=== PATIENT | male | born 1970 | race Caucasian/White ===

== ENCOUNTER 2018-07-27 18:02 | Inpatient (IN) | payer OTHER ==
[2018-07-27 18:28] LABS: #Basophils 0.1 thou/uL (0.0-0.2); #Eosinphils 0.1 thou/uL (0.0-0.7); #Lymphocytes 3.4 thou/uL (1.20-3.40); #Monocytes 1.2 thou/uL (0.11-0.59); #Neutrophils 9.6 thou/uL (1.40-6.50); %Basophils 0.8 % (0.0-1.0); %Eosinophils 0.9 % (0.0-10.0); %Lymphocytes 23.6 % (21.0-51.0); %Monocytes 8.2 % (0.0-10.0); %Neutrophils 66.5 % (42.0-75.0); Hemoglobin 16.3 g/dL (14.0-18.0); Mean Corpuscular HGB CONC 33.3 g/dL (32.0-36.0); Mean Corpuscular Hemoglobin 28.5 pg (27.0-31.0); Mean Corpuscular Volume 85.6 fL (78.0-98.0); Mean Platelet Volume 8.2 fL (7.4-10.4); Platelet Count 462 thou/uL (130-400); Red Blood Cell (RBC) Count 5.74 mill/uL (4.70-6.10); White Blood Cell (WBC) Count 14.5 thou/uL (4.8-10.8)
[2018-07-27] MEDS ORDERED: Lidocaine 2% Viscous Solution 10 ML, Aluminum & Magnesium Hydroxide 30 ML SSW SCH (18:45)
[2018-07-27 18:50] LABS: ALT (SGPT) 86 U/L (8-55); AST (SGOT) 62 U/L (5-34); Albumin 4.6 g/dL (3.5-5.0); Alkaline Phosphatase 63 U/L (40-150); Anion Gap 13 mmol/L (10-20); BUN (Urea Nitrogen) 15 mg/dL (8.9-20.6); Bilirubin, Total 0.8 mg/dL (0.2-1.2); Calc. Creatinine Clearance 0 mL/min (70-130); Calcium 9.9 mg/dL (7.8-10.44); Carbon Dioxide 27 mmol/L (22-29); Chloride 104 mmol/L (98-107); Estimated GFR-MDRD 61; Globulin 2.4 g/dL (2.4-3.5); Glucose 110 mg/dL (70-105); Lipase 51 U/L (8-78); Potassium 4.1 mmol/L (3.5-5.1); Sodium 140 mmol/L (136-145)
[2018-07-27 19:17] LABS: CKMB 44.5 ng/mL (0-6.6)
[2018-07-27] MEDS ORDERED: Enoxaparin Sodium 30 MG/0.3 ML SYRINGE ONE (19:48)
[2018-07-27] MEDS ORDERED: Enoxaparin Sodium 100 MG/ML SYRINGE ONE (19:48)
[2018-07-27] MEDS ORDERED: Nitroglycerin 2% Ointment 1 INCH/1 GM Packet ONE (20:02)
[2018-07-27] MEDS ORDERED: Acetaminophen 500 MG TAB ONE (20:07)
[2018-07-27] MEDS ORDERED: Dextrose 50% Abboject 50 ML SYRINGE SLOW IVP PRN (20:48)
[2018-07-27] MEDS ORDERED: Sodium Chloride 0.9% 1,000 ML IV SCH (20:48)
[2018-07-27] MEDS ORDERED: Ondansetron PF 4 MG/2 ML Vial IVP PRN (20:48)
[2018-07-27] MEDS ORDERED: Acetaminophen 325 MG TAB PO PRN (20:48)
[2018-07-27] MEDS ORDERED: Acetaminophen 650 MG Suppository PR PRN (20:48)
[2018-07-27] MEDS ORDERED: Dextrose 5% in Water 1,000 ML IV PRN (20:48)
[2018-07-27] MEDS ORDERED: HumaLOG 300 UNITS/3 ML VIAL SC PRN ×2 (20:48)
[2018-07-27] MEDS ORDERED: Senokot S 8.6-50 MG TAB PO PRN (20:48)
[2018-07-27] MEDS ORDERED: Guaifenesin DM 100-10/5 ML UDCUP PO PRN (20:48)
[2018-07-27] MEDS ORDERED: Ondansetron ODT 4 MG TAB PO PRN (20:48)
--- NOTE | 2018-07-27 21:01 | RAD ---
PORTABLE CHEST: Date: 07-27-18 Provided Clinical History: Chest pain FINDINGS: Evaluation is limited by patient body habitus. The cardiac silhouette appears enlarged, which may be due to portable technique. Prominence of the pulmonary vasculature. No focal consolidation, pleural f luid, or pneumothorax apparent. IMPRESSION: Cardiomegaly and prominence of the pulmonary vasculature. Correlate with concerns for congestive fail ure. POS: NADIR
[2018-07-27 21:16] VITALS: BMI 36.7
[2018-07-27] MEDS: Nitroglycerin 2% Ointment 1 INCH/1 GM Packet TOP SCH (21:29)
[2018-07-27] MEDS: Metoprolol Tartrate 25 MG TAB PO SCH (21:29)
[2018-07-27] MEDS: Atorvastatin Calcium 40 MG TAB PO SCH (21:29)
[2018-07-27] MEDS: Famotidine/PF 20 mg/2ml Vial SLOW IVP SCH (21:29)
[2018-07-27 21:58] LABS: Troponin I 3.548 ng/mL (< 0.028)
--- NOTE | 2018-07-27 22:17 | HP ---
PRIMARY CARE PHYSICIAN: Out of [facility], [facility]. CHIEF COMPLAINT: Chest pain. HISTORY OF PRESENT ILLNESS: This is a 48-year-old white male with a history of diet-controlled diabetes mellitus type 2, hypertension, and hyperlipidemia. 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 He woke up at 4 a.m. this morning with substernal burning chest pain. He thought the pain might improve over the course of the day, but it actually got worse. He made last of his 3 stops for the day and noticed that the pain was worsening. He was also noted to be very sweaty. However, the patient reports that he gets sweaty all the time and it did not seem an abnormal amount to him. He had no other symptoms. The patient was recommended to go to the emergency room. EMS brought him in and gave him aspirin and nitroglycerin en route with no change in his pain. In the emergency room, the patient had a GI cocktail with complete resolution of the burning pain. He did have lab done noted that showed an elevated troponin of 1.45 and a CK-MB of 45. EKG just showed some nonspecific ST changes and some evidence of right heart strain, but no significant ST elevations. The patient is currently asymptomatic. PAST MEDICAL HISTORY: 1. Diabetes mellitus type 2, diet controlled and on metformin. 2. Hypertension. 3. Hyperlipidemia. 4. Recurrent cellulitis of the right lower extremity, takes Omnicef as needed. PAST SURGICAL HISTORY: None. SOCIAL HISTORY: The patient smokes about 3 packs per week of cigarettes. No alcohol or illicit drug use. FAMILY HISTORY: Brother had a heart attack in his early 50s and his grandfather early of a heart attack as well. ALLERGIES: BACTRIM. CURRENT MEDICATIONS: 1. Lisinopril 20 mg daily. 2. Simvastatin 10 mg at night. 3. Metformin 500 mg daily. 4. Amlodipine 2.5 mg daily. The patient is uncertain of these dosages. REVIEW OF SYSTEMS: CONSTITUTIONAL: No fevers, no chills. EYES: No double vision or blurred vision. ENT: No congestion, drainage, or sore throat. CARDIOVASCULAR: See HPI. No palpitations or racing heart. PULMONARY: No coughing, wheezing, or shortness of breath. GASTROINTESTINAL: No abdominal pain. No nausea or vomiting. No diarrhea or constipation. GENITOURINARY: No dysuria or hematuria. MUSCULOSKELETAL: No muscle aches or joint pains. SKIN: No rashes or other lesions he has noted. NEUROLOGIC: No numbness, tingling, or focal weakness. PHYSICAL EXAMINATION: VITAL SIGNS: Blood pressure 144/103. His blood pressures previous to this check though have been controlled. Pulse 98, respirations 18, temperature 98.6, O2 saturation 97% on room air. GENERAL: This is a well-developed, obese, white male, in no acute distress. HEENT: Pupils are equal, round, and reactive to light. Oropharynx is clear without lesions, erythema, or exudate. NECK: Supple. No lymphadenopathy. No thyroid nodules or enlargement. No JVD. HEART: Regular rate and rhythm. No murmurs, rubs, or gallops. LUNGS: Clear to auscultation bilaterally. No wheezes, crackles, or rhonchi. ABDOMEN: Soft, nontender to palpation. Normoactive bowel sounds. No hepatosplenomegaly or other masses. EXTREMITIES: No clubbing, cyanosis, or edema. SKIN: No rashes or other lesions noted. NEUROLOGIC: Intact strength and sensation in all extremities. No facial droop. PSYCHIATRIC: Alert and oriented x3. Normal mood and affect. LABORATORY DATA: CBC with a white blood cell count of 14.5 and a platelet count of 462. The rest is normal. Complete metabolic panel is notable only for glucose of 110. An AST of 62, an ALT of 86. The rest was normal. His CK-MB was 44.5 and troponin was 1.45. IMAGING: Chest x-ray, I did review the chest x-ray done in the emergency room. No acute infiltrates noted. Film appears to be somewhat rotated, so unable to appropriately appreciate the heart size or mediastinal silhouette. EKG, I did review the EKG done in the emergency room. It does show normal sinus rhythm at 77 beats per minute and some nonspecific ST abnormalities, but no significant ST-segment elevation. Does have a normal axis, but there is an RSR pattern suggesting right ventricular conduction delay. ASSESSMENT: 1. Non ST-elevation myocardial infarction. I have given the patient full-dose Lovenox, also placing an inch of nitroglycerin paste on chest wall and we will give a dose of metoprolol. I had talked with Dr. Colin, cardiology on-call and he asked me to make the patient n.p.o. for the morning and the patient will need a catheterization at that time. The patient is currently asymptomatic without any active chest pain, so I believe it will be safe to watch him on the telemetry floor should he have worsening or uncontrolled chest pain, then moving him to the unit with a nitroglycerin drip will be the next course of action. 2. Hypertension. We will resume home blood pressure medications if current interventions did not keep the blood pressure under good control. 3. Hyperlipidemia. We will start the patient on atorvastatin 40 mg at night and check a lipid profile in the morning. 4. Tobacco abuse. We will give cessation counseling. 5. Gastrointestinal prophylaxis. We will put the patient on Pepcid twice a day. 6. Deep venous thrombosis prophylaxis. The patient is already on Lovenox. We will use SCDs while in bed. 7. Diabetes mellitus type 2, diet controlled. We will check fingerstick blood sugars before meals and at bedtime, and give a low insulin sliding scale as needed. We will hold metformin for now due to the upcoming catheterization. 8. Code status: I did discuss this with the patient, he is a full code. Should he be incapacitated, he stated that his sons would be his medical decision makers. Their names are Jc Herrmann and Hair Herrmann. Job ID: [id number]
[2018-07-28] MEDS: Nitroglycerin 2% Ointment 1 INCH/1 GM Packet TOP SCH ×3 (05:59→22:27)
[2018-07-28 07:40] LABS: #Basophils 0.1 thou/uL (0.0-0.2); #Eosinphils 0.1 thou/uL (0.0-0.7); #Monocytes 0.9 thou/uL (0.11-0.59); #Neutrophils 6.5 thou/uL (1.40-6.50); %Basophils 1.1 % (0.0-1.0); %Lymphocytes 28.2 % (21.0-51.0); %Monocytes 8.1 % (0.0-10.0); %Neutrophils 61.6 % (42.0-75.0); Hemoglobin 15.6 g/dL (14.0-18.0); Mean Corpuscular HGB CONC 34.7 g/dL (32.0-36.0); Mean Corpuscular Hemoglobin 29.8 pg (27.0-31.0); Mean Corpuscular Volume 85.8 fL (78.0-98.0); Mean Platelet Volume 8.2 fL (7.4-10.4); Platelet Count 296 thou/uL (130-400); Red Blood Cell (RBC) Count 5.23 mill/uL (4.70-6.10); White Blood Cell (WBC) Count 10.5 thou/uL (4.8-10.8)
[2018-07-28 07:46] LABS: Anion Gap 14 mmol/L (10-20); BUN (Urea Nitrogen) 13 mg/dL (8.9-20.6); Calc. Creatinine Clearance 147 mL/min (70-130); Calcium 9.1 mg/dL (7.8-10.44); Carbon Dioxide 23 mmol/L (22-29); Cardiac Risk 4.9 (Less than 4.5); Chloride 106 mmol/L (98-107); Cholesterol 132 mg/dl (< 200 Desired); Estimated GFR-MDRD 71; Glucose 126 mg/dL (70-105); HDL Cholesterol 27 mg/dL (>60 Neg Risk); LDL Cholesterol, Calculated 68 mg/dL; Potassium 3.6 mmol/L (3.5-5.1); Sodium 139 mmol/L (136-145); Triglycerides 187 mg/dL (Less than 150)
[2018-07-28] MEDS ORDERED: Diazepam 5 MG TAB PO SCH (08:15)
[2018-07-28] MEDS ORDERED: Communication Order-Pharmacy FS SCH (08:15)
[2018-07-28] MEDS ORDERED: Iopamidol 370 76% 100 ML VIAL ONE (08:27)
[2018-07-28] MEDS ORDERED: Iopamidol 370 76% 50 ML VIAL FS ONE (08:27)
[2018-07-28] MEDS ORDERED: Enoxaparin Sodium 120 MG/0.8 ML SYRINGE SC SCH (09:00)
[2018-07-28] MEDS: Aspirin 325 mg Enteric Coated Tablet PO SCH (09:00)
[2018-07-28] MEDS: Metoprolol Tartrate 25 MG TAB PO SCH ×2 (09:10→19:36)
[2018-07-28] MEDS: Famotidine/PF 20 mg/2ml Vial SLOW IVP SCH ×2 (09:10→19:21)
[2018-07-28] MEDS ORDERED: Midazolam HCl 2 mg/2 ml Vial ONE (09:25)
[2018-07-28] MEDS ORDERED: Fentanyl 100 MCG/2 ML VIAL ONE ×2 (09:25→14:55)
--- NOTE | 2018-07-28 09:39 | PDOC.PN ---
- Subjective Encounter Start Date: 07/28/18 Encounter Start Time: 20:20 Subjective: Patient without pain. No N/V. Had cath today with stents to RCA. - Objective Resuscitation Status - Order Detail: 07/27/18 19:56 Resuscitation Status Routine Resuscitation Status: FULL: Full Resuscitation Discussed with: Saul HARRELL Reviewed: Yes Vital Signs & Weight: Vital Signs (12 hours) Temp Pulse Resp BP Pulse Ox 07/28/18 03:10 98.4 F 72 18 109/65 92 L Weight Weight 286 lb 1.6 oz I&O: 07/27/18 07/28/18 07/29/18 06:59 06:59 06:59 Intake Total 615 Output Total 600 Balance 15 Result Diagrams: 07/28/18 07:15 07/28/18 07:15 Additional Labs: Accuchecks 07/28/18 05:30 POC Glucose 121 H Phys Exam - Physical Examination Constitutional: NAD HEENT: moist MMs Respiratory: no wheezing, no rales, no rhonchi, clear to auscultation bilateral Cardiovascular: RRR, no significant murmur Gastrointestinal: soft, non-tender, positive bowel sounds Neurological: non-focal Psychiatric: normal affect, A&O x 3 Dx/Plan (1) NSTEMI (non-ST elevated myocardial infarction) Code(s): I21.4 - NON-ST ELEVATION (NSTEMI) MYOCARDIAL INFARCTION Status: Acute Comment: cath with stent to RCA, some ST-elevation on EKG after cath but no symptoms (2) HTN (hypertension) Code(s): I10 - ESSENTIAL (PRIMARY) HYPERTENSION Status: Chronic Qualifiers: Hypertension type: essential hypertension Qualified Code(s): I10 - Essential (primary) hypertension (3) HLD (hyperlipidemia) Code(s): E78.5 - HYPERLIPIDEMIA, UNSPECIFIED Status: Chronic (4) DM type 2 (diabetes mellitus, type 2) Status: Chronic Qualifiers: Diabetes mellitus fci insulin use: without fci use Comment: diet controlled, holding Metformin for cath - Plan cont current plan of care, DVT proph w/lovenox keep another couple days in the hospital per Dr. Huston * . - Discharge Day Encounter end time: 20:30
[2018-07-28] MEDS ORDERED: Nitroglycerin 100MG/250ML BOT 250 ML ONE (09:51)
[2018-07-28] MEDS ORDERED: Heparin 10,000 UNITS/1 ML VIAL ONE ×4 (10:00→11:37)
[2018-07-28] MEDS ORDERED: Atropine Sulfate 1 mg/10 ml Syringe ONE (11:01)
[2018-07-28] MEDS ORDERED: TICAGRELOR 90 MG TABLET ONE (11:18)
[2018-07-28] MEDS ORDERED: traMADol HCl 50 MG TAB PO PRN (12:11)
[2018-07-28] MEDS ORDERED: Heparin 5,000 UNITS/ML VIAL ONE (13:04)
[2018-07-28] MEDS ORDERED: Heparin 10,000 UNITS/ 10 ML VIAL ONE ×3 (13:07→14:42)
[2018-07-28] MEDS ORDERED: Heparin 1,000 UNITS/ML VIAL SLOW IVP SCH (14:00)
--- NOTE | 2018-07-28 14:18 | CON ---
DATE OF CONSULTATION: 07/28/2018 REASON FOR CONSULTATION: Non-ST elevation myocardial infarction. 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 It went on much of the day off and on, but intensified. He was not sure if it was acid reflux, which he has had before or possibly his heart. Therefore, ultimately he decided to seek attention. He was brought in by ambulance. He was given nitroglycerin, it did not help. The patient had a burning sensation in his chest. He said the nitroglycerin did help. He later received some medicine for acid reflux and that did help his pain; however, the cardiac enzymes were elevated. PAST MEDICAL HISTORY: He does have a history of esophageal reflux many years ago. He was on a proton pump inhibitors over 10 years ago. The patient otherwise has been in fairly good condition. The patient does have a history of hypertension, hypercholesterolemia, and diabetes. He said the diabetes was diagnosed about a year ago. He is also extremely overweight and continues to smoke. FAMILY HISTORY: His brother had coronary artery disease and myocardial infarction at a relatively young age. Father with hypertension. SOCIAL HISTORY: He continues to smoke. He understands now it is essential that he quit. 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 He said he did have some in retrospect some other pain he was considering getting a stress test done at home. REVIEW OF SYSTEMS: CONSTITUTIONAL: No significant weight gain or loss. VISION: No changes. HEARING: No changes. PULMONARY: No cough or wheezing. GASTROINTESTINAL: No nausea, vomiting, or diarrhea. SKIN: No rashes. NEUROLOGIC: No unilateral weakness or numbness. PSYCHIATRIC: No unusual depression or anxiety. HEMATOLOGIC: No unusual bruising. GENITOURINARY: No burning with urination. PHYSICAL EXAMINATION: GENERAL: The patient is alert, oriented, resting comfortably, pain-free now. VITAL SIGNS: Blood pressure 127/72, pulse 94 and regular. LUNGS: Clear. CARDIAC: Normal S1, normal S2. There is no murmur, rub, or gallop. ABDOMEN: Obese, nontender. No hepatosplenomegaly. EXTREMITIES: Warm and dry. No clubbing or cyanosis. No edema. He has good dorsalis pedis pulses bilaterally. SKIN: Warm and dry. PERTINENT LABORATORY DATA: The peak troponin was 9.570. Other laboratory, cholesterol 132, LDLs 68, and triglyceride 187, that was this morning. Blood sugar 126, creatinine 1.1. IMAGING STUDIES: EKG sinus rhythm with the rSr prime pattern, not a complete right bundle branch block. No acute changes. ASSESSMENT: 1. Status post non-ST elevation myocardial infarction. 2. Diabetes. 3. Morbid obesity. Body mass index 36.7. 4. History of hypertension. 5. History of hypercholesterolemia. PLAN: 1. Aspirin has been given. 2. He received Lovenox last night. 3. Recommend proceed to cardiac catheterization lab this morning. Discussed risk stroke, heart attack, iodine allergy, loss of blood supply to leg or kidney, stent thrombosis, stent restenosis were all discussed. The patient understands and wished to proceed. 4. The patient also has acid reflux, will be treated for acid reflux as well. Job ID: [id number]
--- NOTE | 2018-07-28 15:40 | PRG ---
DATE OF SERVICE: 07/28/2018 SUBJECTIVE: I was called by the nurse and the electrocardiogram showed some ST elevation in the inferior leads and 1 mm in II, III, and 0.5 mm in the aVF. This is the first EKG that was obtained after the cardiac catheterization. The patient is not having any chest pain or pressure. The patient did have severe very refractory to heparin even after receiving very large amounts of heparin. He still had an ACT that was low. We will give an extra dose of heparin. I think the patient may have had some microembolization of thrombus. He is pain-free. This is the first EKG that is obtained after the procedure. The procedure was ended up with a very good result. ASSESSMENT: Some ST elevation noted on the EKG, probably related to the previous infarct and possibly some embolization at the time of the procedure. PLAN: We will give additional dose of heparin. The dual antiplatelet effect was likely in place by now seems to be retaining urine. Job ID: [id number]
--- NOTE | 2018-07-28 17:03 | EKG ---
Test Reason : POST STENTS X 2-RCA Blood Pressure : / mmHG Vent. Rate : 074 BPM Atrial Rate : 074 BPM P-R Int : 158 ms QRS Dur : 110 ms QT Int : 388 ms P-R-T Axes : 027 051 082 degrees QTc Int : 430 ms Normal sinus rhythm Inferior infarct , possibly acute * ACUTE IL * Consider right ventricular involvement in acute inferior infarct Abnormal ECG When compared with ECG of 27-JUL-2018 18:04, (Unconfirmed) RSR' pattern in V1 is no longer Present ST elevation now present in Inferior leads Confirmed by DR. Juan MCGHEE ([id number]) on 07/28/2018 5:03:33 PM Referred By: EM Confirmed By:DR. Juan MCGHEE
[2018-07-28] MEDS: Carvedilol 3.125 MG TAB PO SCH (18:58)
[2018-07-28] MEDS: TICAGRELOR 90 MG TABLET PO SCH (19:21)
[2018-07-28] MEDS: Atorvastatin Calcium 40 MG TAB PO SCH (19:22)
[2018-07-28] MEDS: Sodium Chloride 0.9% 1,000 ML IV SCH (19:26)
[2018-07-29] MEDS: Nitroglycerin 2% Ointment 1 INCH/1 GM Packet TOP SCH ×3 (05:34→21:00)
[2018-07-29 07:08] LABS: #Basophils 0.1 thou/uL (0.0-0.2); #Lymphocytes 2.1 thou/uL (1.20-3.40); #Neutrophils 5.5 thou/uL (1.40-6.50); %Basophils 0.7 % (0.0-1.0); %Eosinophils 0.3 % (0.0-10.0); %Lymphocytes 23.9 % (21.0-51.0); %Monocytes 11.2 % (0.0-10.0); %Neutrophils 63.8 % (42.0-75.0); Hemoglobin 13.8 g/dL (14.0-18.0); Mean Corpuscular HGB CONC 34.4 g/dL (32.0-36.0); Mean Corpuscular Hemoglobin 29.8 pg (27.0-31.0); Mean Corpuscular Volume 86.6 fL (78.0-98.0); Mean Platelet Volume 8.6 fL (7.4-10.4); Platelet Count 256 thou/uL (130-400); Red Blood Cell (RBC) Count 4.64 mill/uL (4.70-6.10); White Blood Cell (WBC) Count 8.6 thou/uL (4.8-10.8)
[2018-07-29 07:34] LABS: ALT (SGPT) 65 U/L (8-55); AST (SGOT) 140 U/L (5-34); Albumin 3.7 g/dL (3.5-5.0); Alkaline Phosphatase 43 U/L (40-150); Anion Gap 10 mmol/L (10-20); BUN (Urea Nitrogen) 12 mg/dL (8.9-20.6); Bilirubin, Total 1.6 mg/dL (0.2-1.2); Calc. Creatinine Clearance 150 mL/min (70-130); Calcium 8.6 mg/dL (7.8-10.44); Carbon Dioxide 27 mmol/L (22-29); Chloride 106 mmol/L (98-107); Estimated GFR-MDRD 72; Globulin 2.2 g/dL (2.4-3.5); Glucose 122 mg/dL (70-105); Protein, Total 5.9 g/dL (6.0-8.3); Sodium 139 mmol/L (136-145)
[2018-07-29 08:00] LABS: Troponin I 50.736 ng/mL (< 0.028)
[2018-07-29] MEDS: Sodium Chloride 0.9% 1,000 ML IV SCH (09:05)
[2018-07-29] MEDS: Metoprolol Tartrate 25 MG TAB PO SCH ×2 (09:09→20:57)
[2018-07-29] MEDS: TICAGRELOR 90 MG TABLET PO SCH ×2 (09:10→20:59)
[2018-07-29] MEDS: Carvedilol 3.125 MG TAB PO SCH ×2 (09:10→16:12)
[2018-07-29] MEDS: Lisinopril 2.5 MG TAB PO SCH (09:10)
[2018-07-29] MEDS: Famotidine/PF 20 mg/2ml Vial SLOW IVP SCH ×2 (09:10→20:59)
[2018-07-29] MEDS: Aspirin Chewable 81 MG TAB PO SCH (09:10)
[2018-07-29] MEDS: Aspirin 325 mg Enteric Coated Tablet PO SCH (09:10)
--- NOTE | 2018-07-29 09:11 | PDOC.PN ---
- Subjective Encounter Start Date: 07/29/18 Encounter Start Time: 09:50 Subjective: Patient without chest pain. Ambulating well with SOB. - Objective Resuscitation Status - Order Detail: 07/27/18 19:56 Resuscitation Status Routine Resuscitation Status: FULL: Full Resuscitation Discussed with: Saul HARRELL Reviewed: Yes Vital Signs & Weight: Vital Signs (12 hours) Temp Pulse Resp BP Pulse Ox 07/29/18 07:50 98.1 F 72 20 117/60 98 07/29/18 03:00 97.5 F L 74 18 115/70 95 Weight Admit Weight 286 lb 1.6 oz Weight 286 lb 1.6 oz I&O: 07/28/18 07/29/18 07/30/18 06:59 06:59 06:59 Intake Total 615 2406 300 Output Total 600 1300 Balance 15 1106 300 Result Diagrams: 07/29/18 06:09 07/29/18 06:09 Additional Labs: Accuchecks 07/29/18 07/28/18 07/28/18 05:35 20:03 15:20 POC Glucose 122 H 137 H 128 H Phys Exam - Physical Examination Constitutional: NAD very sweaty which is baseline for him HEENT: moist MMs Respiratory: no wheezing, no rales, no rhonchi Cardiovascular: RRR, no significant murmur Gastrointestinal: soft, positive bowel sounds obese Neurological: non-focal, moves all 4 limbs Psychiatric: normal affect, A&O x 3 Dx/Plan (1) STEMI (ST elevation myocardial infarction) Status: Acute Qualifiers: Involved coronary artery: right coronary artery Qualified Code(s): I21.11 - ST elevation (STEMI) myocardial infarction involving right coronary artery Comment: ST elevation and significant troponin elevation after cath, likely some embolization after stent deployment, normal EF (2) HTN (hypertension) Code(s): I10 - ESSENTIAL (PRIMARY) HYPERTENSION Status: Chronic Qualifiers: Hypertension type: essential hypertension Qualified Code(s): I10 - Essential (primary) hypertension (3) HLD (hyperlipidemia) Code(s): E78.5 - HYPERLIPIDEMIA, UNSPECIFIED Status: Chronic (4) DM type 2 (diabetes mellitus, type 2) Status: Chronic Qualifiers: Diabetes mellitus rat exterminator insulin use: without rat exterminator use Comment: diet controlled, holding Metformin for cath - Plan cont current plan of care, out of bed/ambulate, DVT proph w/SCDs possibly home tomorrow if continues to do well * . - Discharge Day Encounter end time: 10:05
--- NOTE | 2018-07-29 11:09 | PRG ---
DATE OF SERVICE: SUBJECTIVE: Mr. Herrmann feels very well today. No chest pain or pressure. Overall says he feels better than he has had for quite some time. OBJECTIVE: VITAL SIGNS: Blood pressure 117/60, pulse 72 and regular. LUNGS: Clear. CARDIAC: Normal S1, normal S2. ABDOMEN: Obese, nontender. EXTREMITIES: Warm and dry. LABORATORY DATA: The patient's troponin level yesterday was 73, today is 50.7. ASSESSMENT AND PLAN: The patient's infarct-related vessel was a very complicated stenosis in the right coronary artery, probably some thrombus. There was a 99% lesion, which could only be crossed with compliant balloon and had to be gradually dilated up to get the stent to be in put in place and then deployed. The patient may have had some embolization of thrombus at the time. There really was not any other option to try to prevent that. He did not have any chest pain with it, but later in the afternoon, the EKG was noted to have some mild ST elevation in the inferior leads. He feels great today. The patient will be monitored one more day and then be released home tomorrow on aspirin, Brilinta, statin, metoprolol, and lisinopril. Job ID: [id number]
[2018-07-29] MEDS: Atorvastatin Calcium 40 MG TAB PO SCH (20:59)
[2018-07-30 08:07] VITALS: BP 133/86; TEMP 98.3
--- NOTE | 2018-07-30 08:59 | PDOC.PN ---
- Subjective Encounter Start Date: 07/30/18 Encounter Start Time: 10:00 Subjective: Patient without further chest pain. No other complaints. Ready to go home. - Objective Resuscitation Status - Order Detail: 07/27/18 19:56 Resuscitation Status Routine Resuscitation Status: FULL: Full Resuscitation Discussed with: Patient JULIO CESAR Reviewed: Yes Vital Signs & Weight: Vital Signs (12 hours) Temp Pulse Resp BP Pulse Ox 07/30/18 08:06 98.3 F 72 18 133/86 96 07/30/18 04:06 98.6 F 72 20 112/67 97 Weight Admit Weight 286 lb 1.6 oz Weight 286 lb 1.6 oz I&O: 07/29/18 07/30/18 07/31/18 06:59 06:59 06:59 Intake Total 2406 900 Output Total 1300 Balance 1106 900 Result Diagrams: 07/29/18 06:09 07/29/18 06:09 Additional Labs: Accuchecks 07/30/18 07/29/18 07/29/18 05:29 20:24 16:22 POC Glucose 117 H 162 H 117 H 07/29/18 11:19 POC Glucose 156 H Phys Exam - Physical Examination Constitutional: NAD HEENT: moist MMs Respiratory: no wheezing, no rales, no rhonchi, clear to auscultation bilateral Cardiovascular: RRR, no significant murmur Gastrointestinal: soft, non-tender, positive bowel sounds obese Neurological: non-focal, moves all 4 limbs Psychiatric: normal affect, A&O x 3 Dx/Plan (1) STEMI (ST elevation myocardial infarction) Status: Acute Qualifiers: Involved coronary artery: right coronary artery Qualified Code(s): I21.11 - ST elevation (STEMI) myocardial infarction involving right coronary artery Comment: ST elevation and significant troponin elevation after cath, likely some embolization after stent deployment, normal EF, home today on aspirin, Brilinta, statin, metoprolol, and lisinopril (2) HTN (hypertension) Code(s): I10 - ESSENTIAL (PRIMARY) HYPERTENSION Status: Chronic Qualifiers: Hypertension type: essential hypertension Qualified Code(s): I10 - Essential (primary) hypertension (3) HLD (hyperlipidemia) Code(s): E78.5 - HYPERLIPIDEMIA, UNSPECIFIED Status: Chronic (4) DM type 2 (diabetes mellitus, type 2) Status: Chronic Qualifiers: Diabetes mellitus glue bone drier insulin use: without fpc use Comment: diet controlled, holding Metformin for cath, can resume now - Plan cont current plan of alf today * . - Discharge Day Encounter end time: 10:30
[2018-07-30] MEDS ORDERED: metFORMIN 500 MG TAB PO SCH (09:00)
[2018-07-30] MEDS ORDERED: Famotidine 20 MG TAB PO SCH (09:00)
[2018-07-30] MEDS: Aspirin Chewable 81 MG TAB PO SCH (09:03)
[2018-07-30] MEDS: TICAGRELOR 90 MG TABLET PO SCH (09:03)
[2018-07-30] MEDS: Lisinopril 2.5 MG TAB PO SCH (09:03)
[2018-07-30 10:05] LABS: Critical Call Chem Troponin I RESULT DECREASING
--- NOTE | 2018-07-31 03:18 | DIS ---
DATE OF ADMISSION: 07/27/2018 DATE OF DISCHARGE: 07/30/2018 PRIMARY CARE PHYSICIAN: Out of town. REASON FOR ADMISSION: Non ST-elevation myocardial infarction. DIAGNOSES AT DISCHARGE: 1. ST-elevation myocardial infarction. 2. Coronary artery disease, status post stent to the right coronary artery. 3. Hypertension. 4. Hyperlipidemia. 5. Diabetes mellitus type 2, diet controlled. PROCEDURES: Cardiac catheterization showing two-vessel coronary artery disease, multiple 70% lesions of the mid LAD and a torturous area and a 99% eccentric plaque in the RCA with slow antegrade flow and ulcerated plaque. Left ventricular ejection fraction 45%. PCI of the RCA was done successfully with a 4 x 24 drug-eluting stent dilated with a 4.5-mm balloon and 0% residual stenosis with normal flow afterward. CONSULTATIONS: Cardiology, Dr. Huston. 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 He thought this was reflux, it worsened over the course of the day and eventually got so severe that he called the ambulance. When he got to the hospital, he was noted to have an elevated troponin. His pain resolved with a GI cocktail. He had no significant EKG changes initially. The patient was anticoagulated and admitted to the hospital. Dr. Huston was consulted. He did a cardiac catheterization with the above results. The patient did have some asymptomatic mild ST elevation on his EKG post cardiac cath and his troponin jumped up as well from 9 to [address] Huston believed this is due to likely some showering of emboli during the placement of the stent. The patient has remained asymptomatic, during his hospitalization, we watched him for 2 days after the stent placement. He was doing well with his cardiac rehab and is eager to go home. His family is here to drive him back to [place]. DISCHARGE MANAGEMENT: Location: Discharged home. Followup: Follow up with primary care physician on 08/03/2018 as scheduled and obtain referral for Cardiology in 2 to 3 weeks. Activity: As tolerated. Diet: Diabetic, low-sodium diet. MEDICATIONS: 1. Aspirin 81 mg daily, 30 tablets dispensed. 2. Atorvastatin 40 mg at night, 30 tablets dispensed. 3. Lisinopril 2.5 mg daily, 30 tablets dispensed. 4. Metoprolol succinate 50 mg daily, 30 tablets dispensed. 5. Brilinta 90 mg twice a day, 60 tablets dispensed. 6. Continue metformin 500 mg twice a day. Arranging the details of this discharge took 32 minutes. Job ID: [id number]
--- NOTE | 2018-08-01 10:31 | EKG ---
Test Reason : Blood Pressure : / mmHG Vent. Rate : 077 BPM Atrial Rate : 077 BPM P-R Int : 166 ms QRS Dur : 120 ms QT Int : 374 ms P-R-T Axes : 057 069 086 degrees QTc Int : 423 ms Normal sinus rhythm with sinus arrhythmia RSR' or QR pattern in V1 suggests right ventricular conduction delay Nonspecific ST abnormality Abnormal ECG Confirmed by BAHMAN ROSALES ([id number]), marketing editor SARAH MORGAN ([id number]) on 08/01/2018 10:30:57 AM Referred By: Confirmed By:BAHMAN ROSALES
== END 2018-07-30 11:31 | disposition home or self-care (01) | DRG 247 ==
LOC: ERS 18:02 → 2NO 19:10
PROVIDERS: ADMIT Emergency Medicine; ATTEND Emergency Medicine
PROC: 027034Z Dilation of Coronary Artery, One Artery with Drug-eluting Intraluminal Device, Percutaneous Approach (ICD-10-PCS; principal; 2018-07-27)
PROC: 4A023N7 Measurement of Cardiac Sampling and Pressure, Left Heart, Percutaneous Approach (ICD-10-PCS; 2018-07-27)
PROC: B2111ZZ Fluoroscopy of Multiple Coronary Arteries using Low Osmolar Contrast (ICD-10-PCS; 2018-07-27)
PROC: B2151ZZ Fluoroscopy of Left Heart using Low Osmolar Contrast (ICD-10-PCS; 2018-07-27)
DX: I21.11 ST elevation (STEMI) myocardial infarction involving right coronary artery (principal); E66.01 Morbid (severe) obesity due to excess calories; E11.9 Type 2 diabetes mellitus without complications; I10 Essential (primary) hypertension; E78.5 Hyperlipidemia, unspecified; F17.210 Nicotine dependence, cigarettes, uncomplicated; K21.9 Gastro-esophageal reflux disease without esophagitis; I25.10 Atherosclerotic heart disease of native coronary artery without angina pectoris; Z79.84 Long term (current) use of oral hypoglycemic drugs; Z68.36 Body mass index [BMI] 36.0-36.9, adult; Z88.1 Allergy status to other antibiotic agents; Z71.6 Tobacco abuse counseling
CPT/HCPCS: 36415; 36416; 71045; 76942; 80048; 80053; 80061; 82553; 83690; 84484; 85025; 85347; 92928; 93005; 93010; 93458; 93798; 94760; 96372; 99152; 99153; C1725; C1769; C1874; C1887; C9600; J0461; J1644; J1650; J2250; J3010; Q9967; S0028